=== PATIENT | female | born 1950 | race Caucasian/White ===

== ENCOUNTER → 2017-06-20 | Outpatient (CLI) | payer MEDICARE, OTHER ==
--- NOTE | 2017-06-20 16:00 | RAD ---
Right wrist, 3 views, 06/20/2017: History: Wrist pain and bruising, fall There is patchy bony demineralization. No acute fracture or dislocation is identified. IMPRESSION: No acute bony abnormality is detected.
== END | disposition home or self-care (01) ==
LOC: DXRADRC 15:36
PROVIDERS: ATTEND Nurse Practitioner Family
DX: S60.211A Contusion of right wrist, initial encounter (principal); W19.XXXA Unspecified fall, initial encounter; Y93.89 Activity, other specified; Y92.89 Other specified places as the place of occurrence of the external cause; Y99.8 Other external cause status
CPT/HCPCS: 73110

== ENCOUNTER → 2017-10-25 | Outpatient (CLI) | payer MEDICARE, OTHER ==
--- NOTE | 2017-10-25 16:27 | RAD ---
Three-view right shoulder radiographs 10/25/2017 clinical history severe right shoulder pain. AP internal and external rotation and transscapular digital radiographs of the right shoulder were obtained. A healed fracture of the mid/distal right clavicle is noted. There is diffuse osteopenia of the visualized bony structures. No acute fracture or dislocation right shoulder is seen. Mild degenerative changes are seen involving the right AC joint and right glenohumeral joint. Healed right-sided rib fractures are noted. Impression: No acute osseous abnormality is seen.
--- NOTE | 2017-10-25 16:40 | RAD ---
Mid back pain post fall 2 days ago. AP, lateral and swimmer's lateral digital radiographs of the thoracic spine were obtained. There is diffuse osteopenia of the visualized bony structures. Very mild S-shaped curvature of the thoracolumbar spine is seen. No acute fracture or subluxation of the thoracic vertebrae is seen. Degenerative changes are seen consisting of vertebral endplate sclerosis and mild anterior vertebral body osteophyte formation throughout the thoracic disc spaces. No paravertebral soft tissue swelling is seen. The osseous structures are unchanged. Impression: No acute fracture or subluxation of the thoracic vertebrae is seen.
== END | disposition home or self-care (01) ==
LOC: DXRAD 15:46
PROVIDERS: ATTEND Nurse Practitioner Family
DX: M47.894 Other spondylosis, thoracic region (principal); M85.88 Other specified disorders of bone density and structure, other site; M19.011 Primary osteoarthritis, right shoulder; M85.811 Other specified disorders of bone density and structure, right shoulder
CPT/HCPCS: 72072; 73030

== ENCOUNTER → 2017-11-20 | Outpatient (CLI) | payer MEDICARE, OTHER ==
--- NOTE | 2017-12-12 15:52 | RAD ---
DATE: 11/20/2017 EXAM: MAMMO YENY SCREENING BILATERAL HISTORY: Routine screening COMPARISON: 11/24/2014 This study was interpreted with the benefit of Computerized Aided Detection (CAD). FINDINGS: Breast Density: SCATTERED The breast parenchyma shows scattered fibroglandular densities. Breast parenchyma level B. There are no dominant suspicious masses, suspicious microcalcifications or evidence of architectural distortion. IMPRESSION: Negative mammogram BI-RADS CATEGORY: 1 NEGATIVE RECOMMENDED FOLLOW-UP: 12M 12 MONTH FOLLOW-UP PQRS compliance statement: Patient information was entered into a reminder system with a target due date 11/20/2018 for the next mammogram. Mammography is a sensitive method for finding small breast cancers, but it does not detect them all and is not a substitute for careful clinical examination. A negative mammogram does not negate a clinically suspicious finding and should not result in delay in biopsying a clinically suspicious abnormality. "Our facility is accredited by the [employer] Mammography [employer]."
== END | disposition home or self-care (01) ==
LOC: MAMMO 14:24
PROVIDERS: ATTEND Obstetrics & Gynecology
DX: Z12.31 Encounter for screening mammogram for malignant neoplasm of breast (principal)
CPT/HCPCS: 77063; 77067

== ENCOUNTER → 2018-06-12 | Outpatient (CLI) | payer MEDICARE, OTHER ==
--- NOTE | 2018-06-12 11:44 | RAD ---
Right knee, 2 views, 06/12/2018: HISTORY: Knee pain No fracture or dislocation is identified. There is mild degenerative change at the patellofemoral articulation. No large joint effusion is seen. IMPRESSION: 1. Mild patellofemoral osteoarthritis. 2. No acute bony abnormality is detected. Electronically signed by: Eliud Jim MD (06/12/2018 11:41 AM) [facility]
== END | disposition home or self-care (01) ==
LOC: PMG 08:50
PROVIDERS: ATTEND Physician Assistant
DX: M17.11 Unilateral primary osteoarthritis, right knee (principal); M19.011 Primary osteoarthritis, right shoulder
CPT/HCPCS: 73560

== ENCOUNTER 2020-04-26 18:28 | Emergency (ER) | payer MEDICARE, OTHER ==
[~2020-04-26] VITALS: Ht 154.9 cm; Wt 83.4 kg
[2020-04-26] MEDS ORDERED: DIPH,PERTUSS(ACELL),TET VAC/PF 0.5 ML SYRINGE. VAX IM ONE (19:00)
[2020-04-26] MEDS ORDERED: BUPIVACAINE MPF 0.5% 30 ML VIAL. ONE (19:25)
[2020-04-26] MEDS ORDERED: BUPIVACAINE MPF 0.5% 30 ML VIAL. IJ ONE (19:30)
--- NOTE | 2020-04-26 19:48 | RAD ---
EXAM: PA, oblique and lateral views of the left ring finger DATE: 04/26/2020 6:56 PM INDICATION: Reason: xray of left 4th finger, cut by a knife. COMPARISON: No Prior FINDINGS/ IMPRESSION: Soft tissue swelling about the left ring finger without definite retained radiopaque foreign body or acute osseous abnormality. Electronically signed by: Gabe Malik MD (04/26/2020 7:46 PM) [facility]
--- NOTE | 2020-04-26 19:51 | PHYS DOC ---
Past History Past Medical History: Anxiety, Depression Past Surgical History: Other Additional Past Surgical Histo: BILATERAL KNEE, BREAST IMPLANT REMOVAL Alcohol Use: Occasionally General Adult EDM: Chief Complaint: LACERATION/AVULSION HPI: HPI: Patient is a 69 years old female presented with laceration of left 4th finger. She cut the tip of her left finger while she was cutting a piece of onion. She is not up to date on her tetanus vaccination. Review of Systems: Review of Systems: Constitutional: Denies fever or chills Eyes: Denies change in visual acuity HENT: Denies nasal congestion or sore throat Respiratory: Denies cough or shortness of breath Cardiovascular: Denies chest pain or edema GI: Denies abdominal pain, nausea, vomiting, bloody stools or diarrhea : Denies dysuria Musculoskeletal: Denies back pain or joint pain Integument: Denies rash. Positive for laceration Neurologic: Denies headache, focal weakness or sensory changes Endocrine: Denies polyuria or polydipsia Lymphatic: Denies swollen glands Psychiatric: Denies depression or anxiety Heart Score: Risk Factors: Risk Factors: DM, Current or recent (<one month) smoker, HTN, HLP, family history of CAD, obesity. Risk Scores: Score 0 - 3: 2.5% MACE over next 6 weeks - Discharge Home Score 4 - 6: 20.3% MACE over next 6 weeks - Admit for Clinical Observation Score 7 - 10: 72.7% MACE over next 6 weeks - Early Invasive Strategies Current Medications: Current Meds: Current Medications Medications (Trade) Dose Ordered Sig/Bassam Start Time Stop Time Status Last Admin Dose Admin Bupivacaine HCl (Sensorcaine Mpf 0.5%) 30 ml STK-MED ONCE 04/26/20 19:25 04/26/20 19:26 DC Diphtheria/ Pertussis/Tetanus Vacc (ADACEL TDap SYRINGE) 0.5 ml ONCE ONCE 04/26/20 19:00 04/26/20 19:02 DC 04/26/20 19:04 0.5 ML Allergies: Allergies: Allergies Coded Allergies Type Severity Reaction Last Updated Verified amoxicillin Allergy Unknown 04/26/20 Yes clavulanic acid Allergy Unknown 04/26/20 Yes Physical Exam: PE: Constitutional: Well developed, well nourished, no acute distress, non-toxic appearance. [] HENT: Normocephalic, atraumatic, bilateral external ears normal, oropharynx moist, no oral exudates, nose normal. [] Eyes: PERRLA, EOMI, conjunctiva normal, no discharge. [] Neck: Normal range of motion, no tenderness, supple, no stridor. [] Cardiovascular:Heart rate regular rhythm, no murmur [] Lungs & Thorax: Bilateral breath sounds clear to auscultation [] Abdomen: Bowel sounds normal, soft, no tenderness, no masses, no pulsatile masses. [] Skin: 1 cm laceration at the tip of 4th finger, the laceration cut from the pad to fingernail. No active bleeding. Back: No tenderness, no CVA tenderness. [] Extremities: No tenderness, no cyanosis, no clubbing, ROM intact, no edema. [] Neurologic: Alert and oriented X 3, normal motor function, normal sensory function, no focal deficits noted. [] Psychologic: Affect normal, judgement normal, mood normal. [] Current Patient Data: Vital Signs: Vital Signs Date Time Temp Pulse Resp B/P (MAP) Pulse Ox O2 Delivery O2 Flow Rate FiO2 04/26/20 18:35 98.5 66 20 139/96 (110) 96 Room Air EKG: EKG: [] Radiology/Procedures: Radiology/Procedures: [][place] [address] IMAGING REPORT Signed PATIENT: MYNOR LOVE ACCOUNT: [id number] : 1950 LOCATION: ER AGE: 69 SEX: F EXAM STATUS: REG ER ORD. PHYSICIAN: CLEMENCIA SALAS DO REASON: xray of left 4th finger, cut by a knife. PROCEDURE: FINGER(S) LEFT EXAM: PA, oblique and lateral views of the left ring finger DATE: 04/26/2020 6:56 PM INDICATION: Reason: xray of left 4th finger, cut by a knife. COMPARISON: No Prior FINDINGS/ IMPRESSION: Soft tissue swelling about the left ring finger without definite retained radiopaque foreign body or acute osseous abnormality. Electronically signed by: Gabe Early MD (04/26/2020 7:46 PM) [facility] DICTATED AND SIGNED BY: GABE EARLY MD DATE: 04/26/201945 CC: KEVON HESTER; CLEMENCIA SALAS DO ~ Indication: LEFT 4TH FINGER TIP LACERATION Procedure: The patient was placed in the appropriate position and DIGITAL BLOCK WAS DONE, USING 6 ML OF .5 % MARCAINE, WEBSPACE ABPROACH. The area was then CL EANED WITH SALINE. The laceration was CLOSED WITH 3 SUTURES, 5-0-NYLON. The wound area was then dressed with NONSTICK GAUZE Total repaired wound length: 1 CM Other Items:NONE The patient tolerated the procedure WELL Complications: NONE Course & Med Decision Making: Course & Med Decision Making Pertinent Labs and Imaging studies reviewed. (See chart for details) [] Dragon Disclaimer: Dragon Disclaimer: This electronic medical record was generated, in whole or in part, using a voice recognition dictation system. Departure Departure: Impression: Primary Impression: Finger laceration Disposition: 01 HOME/RESIDENCE PRIOR TO ADM Condition: STABLE Referrals: KEVON HESTER (PCP) follow up with your doctor in 7 days for sutures removal Patient Instructions: Fingertip Laceration Scripts Cephalexin (KEFLEX) 500 Mg Capsule 1 CAP PO TID for skin infection for 5 Days, #15 CAP 0 Refills Prov: CLEMENCIA SALAS DO 04/26/20 Justification of Admission: Justification of Admission: Justification of Admission Dx: N/A CLEMENCIA SALAS DO Apr 26, 2020 19:51
[2020-04-26] MEDS ORDERED: CEPHALEXIN 250 MG CAPSULE PO ONE (20:15)
[2020-04-26 20:18] VITALS: BP 132/74
[2020-04-26] MEDS ORDERED: CEPH-264 PO (20:28)
== END 2020-04-26 20:42 | disposition home or self-care (01) ==
LOC: ER 18:28
DX: S61.215A Laceration without foreign body of left ring finger without damage to nail, initial encounter (principal); Z88.1 Allergy status to other antibiotic agents; Z88.8 Allergy status to other drugs, medicaments and biological substances; W26.0XXA Contact with knife, initial encounter; Y93.G1 Activity, food preparation and clean up; Y92.89 Other specified places as the place of occurrence of the external cause; Y99.8 Other external cause status
CPT/HCPCS: 12001; 73140; 90471; 90715; 99283

== ENCOUNTER → 2020-08-15 | Outpatient (CLI) | payer MEDICARE, OTHER ==
[~2020-08-15] MED LIST: CEPH-264 PO
--- NOTE | 2020-08-17 10:47 | RAD ---
DATE: 08/15/2020 11:33 AM EXAM: MAMMO YENY SCREENING BILATERAL HISTORY: Screening COMPARISON: 11/20/2017 Bilateral CC and MLO views of the breasts were performed. Bilateral breast tomosynthesis was performed in CC and MLO projections. This study was interpreted with the benefit of Computerized Aided Detection (CAD). FINDINGS: Breast Density: FATTY The Breast Parenchyma is primarily fatty replaced. Breast parenchyma level density A. No suspicious masses, microcalcifications or architectural distortion is present to suggest malignancy in either breast. The visualized axillae are unremarkable. IMPRESSION: No mammographic evidence of malignancy. BI-RADS CATEGORY: 1 NEGATIVE RECOMMENDED FOLLOW-UP: 12M 12 MONTH FOLLOW-UP Annual screening mammography is recommended, unless clinically indicated sooner based on symptoms or change in physical exam. PQRS compliance statement: Patient information was entered into a reminder system with a target due date for the next mammogram. Mammography is a sensitive method for finding small breast cancers, but it does not detect them all and is not a substitute for careful clinical examination. A negative mammogram does not negate a clinically suspicious finding and should not result in delay in biopsying a clinically suspicious abnormality. "Our facility is accredited by the [employer] Mammography Program."
== END ==
LOC: MAMMO 11:18
PROVIDERS: ATTEND Obstetrics & Gynecology
DX: Z12.31 Encounter for screening mammogram for malignant neoplasm of breast (principal)
CPT/HCPCS: 77063; 77067

== ENCOUNTER → 2021-10-13 | Outpatient (CLI) | payer MEDICARE, OTHER ==
--- NOTE | 2021-10-13 17:47 | RAD ---
Bilateral digital screening 2-D and 3-D (digital breast tomosynthesis) mammogram: Reason for examination: Routine screening. Comparison: Mammogram from the 08/15/2020. Interpretation was made with the benefit of CAD. FINDINGS: Breast density: Category B. There are scattered areas of fibroglandular density. No suspicious breast mass, malignant appearing calcifications, or architectural distortion is seen. IMPRESSION: No evidence of malignancy. Assessment: BI-RADS 1. Negative. Recommendation: Routine screening mammograms. The patient will receive a letter with the results in the mail. Patient information will be entered i nto the mammography reminder system with a target recall date for the next mammogram. A reminder jeff er will be generated. Electronically signed by: Dolores Vance MD (10/13/2021 5:44 PM) [id number]
== END ==
LOC: MAMMO 15:06
PROVIDERS: ATTEND Obstetrics & Gynecology
DX: Z12.31 Encounter for screening mammogram for malignant neoplasm of breast (principal)
CPT/HCPCS: 77063; 77067